=== PATIENT | female | born 1995 | race American Indian/Alaskan Native ===

== ENCOUNTER 2017-05-31 12:12 | Emergency (ER) | payer OTHER ==
--- NOTE | 2017-05-31 12:31 | ER Report ---
History and Physical Time Seen By MD: 12:25 HPI/ROS Chief concern: loss of consciousness. HPI: 22 year old female presents with two episodes of syncope between 11-1130 this morning. Reports the first time she lost consciousness was standing at the bathroom mirror, denies hitting head. The second time she was observed by a friend, falling in the front room. Friend denies that patient hit her head. Denies nausea/vomiting, vision changes, headaches, recent illnesses. States she is experiencing menstrual cramps. Reports regular menstruation every month, with moderate flow. Reports her last food intake was 8pm last night, and reports a fluid intake of approximately 2-3 twelve ounce containers. Patient denies being sexually active. Review of Systems: General: Denies headaches. HEENT: Denies vision changes. Neuro: Reports two episodes of syncope. Reports dizziness. GI: Denies nausea, vomiting. : Reports regular monthly menses with cramping. Allergies: Coded Allergies: No Known Drug Allergies (Unverified , 05/31/17) Home Meds Active Scripts Meclizine Hcl (MECLIZINE HCL) 25 Mg Tablet, 25 MG PO Q4-6H Y for DIZZINESS, #30 TAB Prov:ASHA CHRISTIAN [employer] 05/31/17 Reported Medications [Banadool] No Conflict Check 05/31/17 Past Medical/Surgical History Reports history of left arm fracture. Reviewed Nurses Notes: Yes Old Medical Records Reviewed: No Constitutional Vital Sign - Last 24 Hours 05/31/17 05/31/17 05/31/17 05/31/17 12:12 12:26 12:27 12:27 Temp 97.7 Pulse ??? 77 73 Resp 18 B/P (MAP) 125/81 (96) 125/81 Pulse Ox 94 96 O2 Delivery Room Air 05/31/17 05/31/17 05/31/17 05/31/17 12:30 12:42 12:57 13:00 Pulse ??? 79 B/P (MAP) 121/78 (92) 121/46 (71) Pulse Ox 97 97 05/31/17 05/31/17 05/31/17 05/31/17 13:12 13:27 13:33 13:35 Pulse 75 77 B/P (MAP) 110/62 (78) 110/70 (83) Pulse Ox 97 100 05/31/17 05/31/17 05/31/17 13:36 13:42 13:58 Pulse ??? 76 84 78 B/P (MAP) 99/61 (74) 110/62 (78) 110/70 (83) 99/61 (74) Intake and Output 05/31/17 05/31/17 06/01/17 15:00 23:00 07:00 Intake Total 1000 ml Balance 1000 ml Physical Exam Physical Exam: General: Alert, oriented x3. HEENT: No evidence of head lacerations, ecchymosis, or swelling. PERRLA. EOMI. TMs pearly pelayo, intact with no erythema. Respiratory: Clear to auscultation bilaterally. CV: Regular rate and rhythm. GI: Bowel sounds normoactive all quadrants. Nontender to palpation. Scattered tympany and dullness. Neuro: CN II-XII grossly intact. Romberg test negative. Touch sensation intact upper and lower extremities. 3/3 words correct on 3 word test. Serial 3's from 20 were completed to 14, stopped due to patient's lack of familiarity with [place] terms for numbers. After obtaining a thorough HPI, ROS, and physical exam, the following differentials were considered but not limited to: vertigo, tumor, , hypoglycemia, orthostatic hypotension, cardiac arrhythmias, vagal nerve response. Medical Decision Making Data Points Result Diagram: 05/31/17 1315 05/31/17 1315 Laboratory Hematology Test 05/31/17 12:19 05/31/17 12:49 05/31/17 13:15 Urine Color Yellow Urine Clarity Slightly-cloudy Urine pH 6.0 pH (4.8-9.5) Urine Specific [place] 1.023 Urine Protein 100 mg/dL (NEGATIVE) Urine Glucose (UA) Negative mg/dL (NEGATIVE) Urine Ketones Trace mg/dL (NEGATIVE) Urine Blood Large (NEGATIVE) Urine Nitrite Negative (NEGATIVE) Urine Bilirubin Negative (NEGATIVE) Urine Urobilinogen 2.0 mg/dL (0.2-1.9) Urine Leukocyte Esterase Negative (NEGATIVE) Urine RBC 247 /HPF (0-2/HPF) Urine WBC 8 /HPF (0-5/HPF) Urine Squamous Epithelial Cells Many /LPF (</=FEW) Urine Bacteria Few /HPF (NONE-FEW) Urine Hyaline Casts Many /LPF (NONE-FEW) Urine Mucus Few /HPF (NONE-FEW) Whole Blood Glucose 76 mg/DL (75-110) Red Blood Count 5.05 M/uL (4.17-5.56) Mean Corpuscular Volume 86.8 fL (80.0-96.0) Mean Corpuscular Hemoglobin 30.3 pg (26.0-33.0) Mean Corpuscular Hemoglobin Concent 35.0 g/dL (32.0-36.0) Red Cell Distribution Width 12.4 % (11.5-14.5) Mean Platelet Volume 9.0 fL (7.2-11.1) Neutrophils (%) (Auto) 76.6 % (39.4-72.5) Lymphocytes (%) (Auto) 16.2 % (17.6-49.6) Monocytes (%) (Auto) 5.8 % (4.1-12.4) Eosinophils (%) (Auto) 0.6 % (0.4-6.7) Basophils (%) (Auto) 0.8 % (0.3-1.4) Nucleated RBC Relative Count (auto) 0.1 /100WBC Neutrophils # (Auto) 7.5 K/uL (2.0-7.4) Lymphocytes # (Auto) 1.6 K/uL (1.3-3.6) Monocytes # (Auto) 0.6 K/uL (0.3-1.0) Eosinophils # (Auto) 0.1 K/uL (0.0-0.5) Basophils # (Auto) 0.1 K/uL (0.0-0.1) Nucleated RBC Absolute Count (auto) 0.01 K/uL Sodium Level 139 mmol/L (137-145) Potassium Level 3.6 mmol/L (3.5-5.0) Chloride Level 104 mmol/L (98-107) Carbon Dioxide Level 21 mmol/L (22-31) Blood Urea Nitrogen 12 mg/dl (7-18) Creatinine 0.60 mg/dl (0.52-1.04) Glomerular Filtration Rate Calc > 60.0 Random Glucose 85 mg/dl (75-110) Calcium Level 9.3 mg/dl (8.4-10.2) Total Bilirubin 0.7 mg/dl (0.2-1.3) Aspartate Amino Transf (AST/SGOT) 16 U/L (0-35) Alanine Aminotransferase (ALT/SGPT) 21 U/L (0-56) Alkaline Phosphatase 49 U/L (0-126) Troponin I < 0.012 ng/ml Total Protein 7.1 gm/dl (6.3-8.2) Albumin 4.1 g/dl (3.5-5.0) Human Chorionic Gonadotropin, Qual Negative (NEGATIVE) Chemistry Test 05/31/17 12:19 05/31/17 12:49 05/31/17 13:15 Urine Color Yellow Urine Clarity Slightly-cloudy Urine pH 6.0 pH (4.8-9.5) Urine Specific [place] 1.023 Urine Protein 100 mg/dL (NEGATIVE) Urine Glucose (UA) Negative mg/dL (NEGATIVE) Urine Ketones Trace mg/dL (NEGATIVE) Urine Blood Large (NEGATIVE) Urine Nitrite Negative (NEGATIVE) Urine Bilirubin Negative (NEGATIVE) Urine Urobilinogen 2.0 mg/dL (0.2-1.9) Urine Leukocyte Esterase Negative (NEGATIVE) Urine RBC 247 /HPF (0-2/HPF) Urine WBC 8 /HPF (0-5/HPF) Urine Squamous Epithelial Cells Many /LPF (</=FEW) Urine Bacteria Few /HPF (NONE-FEW) Urine Hyaline Casts Many /LPF (NONE-FEW) Urine Mucus Few /HPF (NONE-FEW) Whole Blood Glucose 76 mg/DL (75-110) White Blood Count 9.7 k/uL (4.5-11.0) Red Blood Count 5.05 M/uL (4.17-5.56) Hemoglobin 15.3 g/dL (12.0-16.0) Hematocrit 43.8 % (34.0-47.0) Mean Corpuscular Volume 86.8 fL (80.0-96.0) Mean Corpuscular Hemoglobin 30.3 pg (26.0-33.0) Mean Corpuscular Hemoglobin Concent 35.0 g/dL (32.0-36.0) Red Cell Distribution Width 12.4 % (11.5-14.5) Platelet Count 183 K/uL (150-450) Mean Platelet Volume 9.0 fL (7.2-11.1) Neutrophils (%) (Auto) 76.6 % (39.4-72.5) Lymphocytes (%) (Auto) 16.2 % (17.6-49.6) Monocytes (%) (Auto) 5.8 % (4.1-12.4) Eosinophils (%) (Auto) 0.6 % (0.4-6.7) Basophils (%) (Auto) 0.8 % (0.3-1.4) Nucleated RBC Relative Count (auto) 0.1 /100WBC Neutrophils # (Auto) 7.5 K/uL (2.0-7.4) Lymphocytes # (Auto) 1.6 K/uL (1.3-3.6) Monocytes # (Auto) 0.6 K/uL (0.3-1.0) Eosinophils # (Auto) 0.1 K/uL (0.0-0.5) Basophils # (Auto) 0.1 K/uL (0.0-0.1) Nucleated RBC Absolute Count (auto) 0.01 K/uL Glomerular Filtration Rate Calc > 60.0 Calcium Level 9.3 mg/dl (8.4-10.2) Total Bilirubin 0.7 mg/dl (0.2-1.3) Aspartate Amino Transf (AST/SGOT) 16 U/L (0-35) Alanine Aminotransferase (ALT/SGPT) 21 U/L (0-56) Alkaline Phosphatase 49 U/L (0-126) Troponin I < 0.012 ng/ml Total Protein 7.1 gm/dl (6.3-8.2) Albumin 4.1 g/dl (3.5-5.0) Human Chorionic Gonadotropin, Qual Negative (NEGATIVE) Urinalysis Test 05/31/17 12:19 Urine Color Yellow Urine Clarity Slightly-cloudy Urine pH 6.0 pH (4.8-9.5) Urine Specific [place] 1.023 Urine Protein 100 mg/dL (NEGATIVE) Urine Glucose (UA) Negative mg/dL (NEGATIVE) Urine Ketones Trace mg/dL (NEGATIVE) Urine Blood Large (NEGATIVE) Urine Nitrite Negative (NEGATIVE) Urine Bilirubin Negative (NEGATIVE) Urine Urobilinogen 2.0 mg/dL (0.2-1.9) Urine Leukocyte Esterase Negative (NEGATIVE) Urine RBC 247 /HPF (0-2/HPF) Urine WBC 8 /HPF (0-5/HPF) Urine Squamous Epithelial Cells Many /LPF (</=FEW) Urine Bacteria Few /HPF (NONE-FEW) Urine Hyaline Casts Many /LPF (NONE-FEW) Urine Mucus Few /HPF (NONE-FEW) EKG/Imaging EKG Interpretation 12 lead EKG: Rhythm: normal sinus rhythm [place]: normal QRS: normal ST segments: Prolonged QT Imaging CHEST PA AND LAT History: passed out x2 FINDINGS: Comparison studies: None. Tubes and Lines: None. Lungs and pleura: Well aerated. No evidence of focal consolidation or pleural effusions. Mediastinum: normal. Cardiac silhouette: normal . Osseous structures: Unremarkable for age . IMPRESSION: Normal chest Report Dictated By: Deion Santana MD at 05/31/2017 2:09 PM Report E-Signed By: Deion Santana MD at 05/31/2017 2:10 PM EXAMINATION: CT HEAD WITHOUT CONTRAST COMPARISON: None available HISTORY: dizziness, passing out PROCEDURE: Noncontrast CT from the vertex through the skull base. One of the following dose optimization techniques was utilized in the performance of this exam: Automated exposure control; adjustment of the mA and/or kV according to the patient's size; or use of an iterative reconstruction technique. Specific details can be referenced in the facility's radiology CT exam operational policy. FINDINGS: Brain volume: Age-appropriate. Hemorrhage/extra-axial fluid: None. Mass effect/midline shift/edema: None. Ischemia: Pelayo-white differentiation is preserved. Ventricles and basal cisterns: Within normal limits. Posterior fossa: Negative. Vessels: Negative. Calvarium, skull base, and scalp: Negative. Visualized sinuses and orbits: Within normal limits. IMPRESSION: Negative age-appropriate noncontrast head CT. Report Dictated By: Brian Wright MD at 05/31/2017 2:09 PM Report E-Signed By: Brian Wright MD at 05/31/2017 2:14 PM ED Course/Re-evaluation ED Course Patient admitted to exam room. Thorough HPI and ROS obtained. Physical exam revealed patient alert, oriented x3. No evidence of head lacerations, ecchymosis, or swelling. PERRLA. EOMI. TMs pearly pelayo, intact with no erythema. Lungs clear to auscultation bilaterally. Regular heart rate and rhythm. Neuro: CN II-XII grossly intact. Romberg test negative. Touch sensation intact upper and lower extremities. 3/3 words correct on 3 word test. Serial 3's from 20 were completed to 14, stopped due to patient's lack of familiarity with [place] terms for numbers. After obtaining a thorough HPI, ROS, and physical exam, the following differentials were considered but not limited to: vertigo, tumor, , hypoglycemia, orthostatic hypotension, cardiac arrhythmias, vagal nerve response. Tests completed include CBC, CMP, HCG, EKG, and CT of head without contrast. CBC showed no evidence of hemodynamic instability, infection. CMP showed no organ dysfunction or electrolyte imbalance. HCG negative. EKG showed normal sinus rhythm. CT scan negative. Discussed findings and vagal nerve response with patient. Recommended ibuprofen for menstrual cramping, application of heating pad, exercise, and increase of oral fluids. Return to ED if symptoms worsen. Patient verbalized understanding and agreed to plan. Decision to Disposition Date: May 31, 2017 Decision to Disposition Time: 14:45 Depart Departure Latest Vital Signs Vital Signs Date Time Temp Pulse Resp B/P (MAP) Pulse Ox O2 Delivery O2 Flow Rate FiO2 05/31/17 13:58 76 110/62 (78) 84 110/70 (83) 78 99/61 (74) 05/31/17 13:27 100 05/31/17 12:27 97.7 18 Room Air Impression: Primary Impression: Syncope Additional Impression: Menstrual cramps Condition: Improved Disposition: HOME OR SELF-CARE New Scripts Meclizine Hcl (MECLIZINE HCL) 25 Mg Tablet 25 MG PO Q4-6H Y for DIZZINESS, #30 TAB Prov: ASHA CHRISTIAN 05/31/17 Patient Instructions: Syncope (ED) Additional Instructions: Take ibuprofen 600mg three times a day as needed for menstrual cramping. Use heating pad, exercise additionally for pain. Increase fluid intake. Return to ED if symptoms worsen. Follow up with primary care provider ([facility]) next week. Problem Qualifiers Primary Impression: Syncope Syncope type: vasovagal syncope Qualified Codes: R55 - Syncope and collapse ASHA CHRISTIAN May 31, 2017 12:31
[2017-05-31] MEDS ORDERED: NS(*) 0.9% 1000 ML BAG 1,000 ML IV ONE (12:47)
[2017-05-31] MEDS ORDERED: [UNRECOGNIZED DRUG - OTHER] (12:54)
--- NOTE | 2017-05-31 13:09 | EKG ---
FACILITY: [facility] - [place] PATIENT NAME: JOLLY ADHIKARI : [id number] MR: [id number] V: [id number] EXAM DATE: ORDERING PHYSICIAN: ASHA CHRISTIAN TECHNOLOGIST: KATY Test Reason : DIZZINESS Blood Pressure : / mmHG Vent. Rate : 079 BPM Atrial Rate : 079 BPM P-R Int : 172 ms QRS Dur : 076 ms QT Int : 412 ms P-R-T Axes : 071 064 044 degrees QTc Int : 472 ms Normal sinus rhythm Nonspecific T wave abnormality Prolonged QT Abnormal ECG No previous ECGs available Confirmed by HEBERT DOWNS ([id number]) on 05/31/2017 10:00:11 PM Referred By: ANAHI Confirmed By:HEBERT DOWNS
[2017-05-31 13:23] LABS: PLATELET COUNT, AUTOMATED 183 K/uL (150-450)
[2017-05-31 13:58] VITALS: BP 99/61
--- NOTE | 2017-05-31 14:15 | RADIOLOGY IMAGING REPORT ---
[place] [facility] [place] NAME: Johanna Dhillon : 1995 MR: [id number] V: [id number] EXAM DATE: ORDERING PHYSICIAN: ASHA CHRISTIAN TECHNOLOGIST: Location: [facility] - [place] Patient: Johanna Dhillon : 1995 Visit/Account:[id number] Date of Sevice: 05/31/2017 CHEST PA AND LAT History: passed out x2 FINDINGS: Comparison studies: None. Tubes and Lines: None. Lungs and pleura: Well aerated. No evidence of focal consolidation or pleural effusions. Mediastinum: normal. Cardiac silhouette: normal . Osseous structures: Unremarkable for age . IMPRESSION: Normal chest Report Dictated By: Deion Santana MD at 05/31/2017 2:09 PM Report E-Signed By: Deion Santana MD at 05/31/2017 2:10 PM WSN:[id number]
--- NOTE | 2017-05-31 14:18 | RADIOLOGY IMAGING REPORT ---
FACILITY: [facility] - [place] PATIENT NAME: Johanna Dhillon : 1995 MR: [id number] V: [id number] EXAM DATE: ORDERING PHYSICIAN: ASHA CHRISTIAN TECHNOLOGIST: [place] [facility] [place] D[place] : 1995 Visit/Account:[id number] Date of Sevice: 05/31/2017 EXAMINATION: CT HEAD WITHOUT CONTRAST COMPARISON: None available HISTORY: dizziness, passing out PROCEDURE: Noncontrast CT from the vertex through the skull base. One of the following dose optimizat ion techniques was utilized in the performance of this exam: Automated exposure control; adjustment o f the mA and/or kV according to the patient's size; or use of an iterative reconstruction technique. Specific details can be referenced in the facility's radiology CT exam operational policy. FINDINGS: Brain volume: Age-appropriate. Hemorrhage/extra-axial fluid: None. Mass effect/midline shift/edema: None. Ischemia: Pelayo-white differentiation is preserved. Ventricles and basal cisterns: Within normal limits. Posterior fossa: Negative. Vessels: Negative. Calvarium, skull base, and scalp: Negative. Visualized sinuses and orbits: Within normal limits. IMPRESSION: Negative age-appropriate noncontrast head CT. Report Dictated By: Brian Wright MD at 05/31/2017 2:09 PM Report E-Signed By: Brian Wright MD at 05/31/2017 2:14 PM WSN:[id number]
[2017-05-31] MEDS ORDERED: MECLIZINE HCL 12.5 MG TAB TH PO ONE (14:50)
[2017-05-31] MEDS ORDERED: MECL25TA9 PO (14:52)
== END 2017-05-31 14:00 | disposition home or self-care (01) ==
LOC: ER 12:40
DX: R55 Syncope and collapse (principal); N94.6 Dysmenorrhea, unspecified
CPT/HCPCS: 36416; 70450; 71046; 81001; 82948; 84484; 84703; 85025; 93005; 96360; 99284; J7030; 82040; 82247; 82310; 82374; 82435; 82565; 82947; 84075; 84132; 84155; 84295; 84450; 84460; 84520